=== PATIENT | male | born 1955 | race Hispanic/Latino ===

== ENCOUNTER 2023-12-31 14:24 | Observation (INO) | payer OTHER, SELFPAY ==
[2023-12-31] MEDS ORDERED: Glucagon 1 MG/ML KIT IM PRN (18:38)
[2023-12-31] MEDS ORDERED: Acetaminophen 650 MG Suppository PR PRN (18:38)
[2023-12-31] MEDS ORDERED: Dextrose 50% Abboject 50 ML SYRINGE SLOW IVP PRN (18:38)
[2023-12-31] MEDS ORDERED: Ondansetron PF 4 MG/2 ML Vial IVP PRN (18:38)
[2023-12-31] MEDS ORDERED: Ondansetron ODT 4 MG TAB PO PRN (18:38)
[2023-12-31] MEDS ORDERED: Dextrose 5% in Water 1,000 ML IV PRN (18:38)
[2023-12-31] MEDS ORDERED: Calcium Carbonate 500 MG ChewTAB PO PRN (18:38)
[2023-12-31] MEDS ORDERED: HumaLOG 300 UNITS/3 ML VIAL SC PRN (18:38)
[2023-12-31] MEDS ORDERED: Senokot S 8.6-50 MG TAB PO PRN (18:38)
[2023-12-31 21:44] VITALS: BMI 33.5
[2023-12-31] MEDS: Famotidine 20 MG TAB PO SCH (21:44)
[2023-12-31] MEDS: Atorvastatin Calcium 40 MG TAB PO SCH (21:45)
[2024-01-01 04:45] LABS: #Basophils 0.03 10x3/uL (0.0-0.2); #Eosinphils 0.23 10x3/uL (0.0-0.5); #Monocytes 0.85 10x3/uL (0.0-1.1); #Neutrophils 5.63 10x3/uL (1.5-8.4); %Basophils 0.3 % (0.0-2.0); %Eosinophils 2.5 % (0.0-6.0); %Lymphocytes 27.7 % (18.0-47.0); %Monocytes 9.1 % (0.0-10.0); %Neutrophils 60.1 % (40.0-75.0); Hematocrit 44.1 % (38.8-50.0); Hemoglobin 15.3 g/dL (13.5-17.5); Mean Corpuscular HGB CONC 34.7 g/dL (32.0-36.0); Mean Corpuscular Hemoglobin 29.1 pg (27.0-33.0); Mean Platelet Volume 9.1 fL (7.4-10.4); Platelet Count 284 10x3/uL (150-450); RBC Distribution Width 12.9 % (11.5-14.5); Red Blood Cell (RBC) Count 5.25 10x6/uL (4.32-5.72); White Blood Cell (WBC) Count 9.4 10x3/uL (3.5-10.5)
[2024-01-01 05:02] LABS: Anion Gap 16 mmol/L (10-20); BUN (Urea Nitrogen) 10 mg/dL (8.4-25.7); Calc. Creatinine Clearance 119 mL/min (70-130); Calcium 8.9 mg/dL (7.8-10.44); Carbon Dioxide 24 mmol/L (23-31); Cardiac Risk 4.1 (Less than 4.5); Chloride 102 mmol/L (98-107); Cholesterol 141 mg/dl (< 200 Desired); Estimated GFR 98; Glucose 133 mg/dL (80-115); HDL Cholesterol 34 mg/dL (>60 Neg Risk); LDL Cholesterol, Calculated 85 mg/dL; Potassium 3.7 mmol/L (3.5-5.1); Sodium 138 mmol/L (136-145); Triglycerides 111 mg/dL (Less than 150)
[2024-01-01] MEDS: Enoxaparin 40 MG (0.4 mL) SYRINGE SC SCH (09:17)
[2024-01-01] MEDS: Aspirin 81 mg Enteric Coated Tablet PO SCH (09:18)
[2024-01-01] MEDS: Acetaminophen 325 MG TAB PO PRN (10:38)
[2024-01-02 04:12] LABS: #Basophils 0.04 10x3/uL (0.0-0.2); #Eosinphils 0.26 10x3/uL (0.0-0.5); #Monocytes 0.87 10x3/uL (0.0-1.1); %Basophils 0.5 % (0.0-2.0); %Lymphocytes 31.6 % (18.0-47.0); %Monocytes 10.1 % (0.0-10.0); %Neutrophils 54.5 % (40.0-75.0); Hematocrit 43.8 % (38.8-50.0); Hemoglobin 15.2 g/dL (13.5-17.5); Mean Corpuscular HGB CONC 34.7 g/dL (32.0-36.0); Mean Corpuscular Hemoglobin 29.1 pg (27.0-33.0); Mean Corpuscular Volume 83.9 fL (81.2-95.1); Mean Platelet Volume 8.7 fL (7.4-10.4); Platelet Count 273 10x3/uL (150-450); RBC Distribution Width 12.8 % (11.5-14.5); Red Blood Cell (RBC) Count 5.22 10x6/uL (4.32-5.72); White Blood Cell (WBC) Count 8.6 10x3/uL (3.5-10.5)
[2024-01-02 04:28] LABS: Anion Gap 15 mmol/L (10-20); BUN (Urea Nitrogen) 11 mg/dL (8.4-25.7); Calc. Creatinine Clearance 105 mL/min (70-130); Calcium 9.3 mg/dL (7.8-10.44); Carbon Dioxide 24 mmol/L (23-31); Chloride 103 mmol/L (98-107); Estimated GFR 94; Glucose 166 mg/dL (80-115); Potassium 3.8 mmol/L (3.5-5.1); Sodium 138 mmol/L (136-145)
[2024-01-02 13:20] LABS: Hemoglobin A1c 7.8 % (4.0-6.0)
[2024-01-02] MEDS: hydrALAZINE 20 MG/ML VIAL SLOW IVP PRN (16:38)
[2024-01-02] MEDS: HumaLOG 300 UNITS/3 ML VIAL SC PRN (16:39)
[2024-01-02] MEDS: Metoprolol Tartrate 50 MG TAB PO SCH (17:57)
[2024-01-02] MEDS ORDERED: Labetalol HCl 100 MG/20 ML VIAL SLOW IVP SCH (21:00)
[2024-01-02] MEDS: Morphine 2 MG/ML VIAL SLOW IVP SCH (21:19)
[2024-01-02] MEDS ORDERED: Morphine 2 MG/ML VIAL SLOW IVP PRN (21:27)
[2024-01-02] MEDS ORDERED: HYDROcodone/Acetaminophen 5/325 mg Tablet PO PRN (21:28)
[2024-01-02] MEDS ORDERED: hydrALAZINE 20 MG/ML VIAL SLOW IVP PRN (21:32)
[2024-01-03 08:16] VITALS: TEMP 97.7
[2024-01-03] MEDS: Metoprolol Tartrate 25 MG TAB PO SCH (08:57)
[2024-01-03] MEDS: Docusate 100 MG CAP PO SCH (08:57)
[2024-01-03] MEDS: metFORMIN 500 MG TAB PO SCH (08:58)
[2024-01-03] MEDS: Lisinopril 20 MG TAB PO SCH (08:58)
[2024-01-03 09:45] VITALS: BP 179/103
== END 2024-01-03 10:41 ==
LOC: EEVIPCON 16:37 → CSHTELE 16:37
PROVIDERS: ADMIT Internal Medicine; ATTEND Internal Medicine
DX: G43.109 Migraine with aura, not intractable, without status migrainosus (principal); R29.90 Unspecified symptoms and signs involving the nervous system; R20.0 Anesthesia of skin; I10 Essential (primary) hypertension; E11.9 Type 2 diabetes mellitus without complications; M54.50 Low back pain, unspecified; G89.29 Other chronic pain; I25.10 Atherosclerotic heart disease of native coronary artery without angina pectoris; R00.0 Tachycardia, unspecified; Z86.73 Personal history of transient ischemic attack (TIA), and cerebral infarction without residual deficits; Z79.84 Long term (current) use of oral hypoglycemic drugs; Z79.899 Other long term (current) drug therapy
CPT/HCPCS: 36415; 36416; 70551; 72148; 80048; 80061; 83036; 84443; 85025; 93880; 94760; J0360; J1650; J1815; J2272